=== PATIENT | male | born 1945 | race Caucasian/White ===

== ENCOUNTER 2017-01-12 06:34 | Day surgery (SDC) | payer OTHER ==
[2017-01-08 11:18] VITALS: BMI 23.9
[2017-01-12] MEDS ORDERED: oxyCODONE HCL 10 MG SUSTAINED ACTING TABLET PO STA (07:20)
[2017-01-12] MEDS ORDERED: CEFAZOLIN 1 GM in DEXTROSE 5%-WATER - 100 ML IVPB ONE (07:20)
[2017-01-12] MEDS ORDERED: GUM MASTIC/STORAX/MSAL/ALCOHOL 1 DRP DROPSBTL MC ONE (07:35)
[2017-01-12] MEDS ORDERED: methylPREDNISolone ACET (DEPO) 40 MG/1 ML VIAL ONE (07:35)
[2017-01-12] MEDS ORDERED: BUPIVACAINE HCL/PF 2.5 MG/ML - 30 ML VIAL IJ ONE (07:35)
[2017-01-12] MEDS ORDERED: THROMBIN (BOVINE) 5,000 UNIT VIAL TP ONE ×2 (07:35→10:05)
[2017-01-12] MEDS ORDERED: LIDOCAINE 1%/EPI 1:100000 (20 ML MULTI DOSE VIAL) ONE (07:35)
--- NOTE | 2017-01-12 08:02 | HP ---
History & Physical Update - History History: No Change - Physical Physical: No Change - Assessment Assessment: No Change - Plan Plan: No Change
[2017-01-12] MEDS ORDERED: MIDAZOLAM HCL 2 MG/2 ML SINGLE DOSE VIAL ONE (08:10)
[2017-01-12] MEDS ORDERED: ceFAZolin SODIUM 1 GM VIAL ONE (08:20)
[2017-01-12] MEDS ORDERED: LIDOCAINE 1%/EPI 1:100000 (50 ML MULTI DOSE VIAL) INF ONE (08:45)
[2017-01-12] MEDS ORDERED: ONDANSETRON 4 MG/2 ML VIAL ONE (08:59)
[2017-01-12] MEDS ORDERED: GELATIN SPONGE,ABSORBABLE 1 GM PACKET TP ONE (10:05)
[2017-01-12] MEDS ORDERED: methylPREDNISolone ACET (DEPO) 40 MG/1 ML VIAL IM ONE (10:21)
[2017-01-12] MEDS ORDERED: BUPIVACAINE HCL/PF 0.25% (2.5MG/ML) 10 ML VIAL IJ ONE (10:22)
[2017-01-12] MEDS ORDERED: ACETAMINOPHEN 1000 MG/100 ML VIAL (NON FORMULARY) IVPB ONE (10:48)
--- NOTE | 2017-01-12 10:48 | OP ---
Operative Note - Note: Operative Date: 01/12/17 Pre-Operative Diagnosis: Spinal stenosis with radiculopathy Operation: Laminectomy L2-L5 (bilateral) Post-Operative Diagnosis: Same as Pre-op Surgeon: Moises Mane Data Solutions Architect: Patrice Schultz Anesthesiologist/LITHOGRAPHIC GENERAL WORKER: Gabbie Boudreaux Anesthesia: Spinal Specimens Removed: None Estimated Blood Loss (mls): 20 Fluid Volume Replaced (mls): 1,000 Operative Report Dictated: Yes
--- NOTE | 2017-01-12 10:48 | SURG ---
Surgery Hair Spring Winder Note Hair Spring Winder: Patrice Schultz PA-C Date of Service: 01/12/17 Diagnosis: Spinal stenosis with radiculopathy Procedure: Laminectomy L2-L5 (bilateral) I was present for the entirety of the operative procedure. For further detail, please refer to operative report. Visit type - Case Type Case Type: Scheduled Admission - New patient This patient is new to me today: Yes Date on this admission: 01/12/17
[2017-01-12] MEDS ORDERED: traMADol HCL 50 MG TABLET PO ONE (10:49)
[2017-01-12] MEDS ORDERED: ONDANSETRON 4 MG/2 ML VIAL IVPUSH PRN (11:14)
[2017-01-12] MEDS ORDERED: oxyCODONE HCL 5 MG TABLET PO PRN (11:14)
[2017-01-12] MEDS ORDERED: LACTATED RINGERS SOLUTION 1,000 ML IV SCH (11:15)
[2017-01-12] MEDS ORDERED: TAMSULOSIN HCL 0.4 MG CAP.ER.24H (FP) ONE (13:16)
[2017-01-12 16:55] VITALS: BP 132/78; PULSE 81; TEMP 98.1
--- NOTE | 2017-01-13 11:20 | OP ---
DATE OF OPERATION: 01/12/2017 PREOPERATIVE DIAGNOSIS: Spinal stenosis, L2 to L5. POSTOPERATIVE DIAGNOSIS: Spinal stenosis, L2 to L5. PROCEDURE PERFORMED: Laminectomy, L2-3, L3-4, L4-5. SURGEON: oMises Mane MD VIRTUAL CLASSROOM MANAGER: SAUMYA Mercado ESTIMATED BLOOD LOSS: 50 mL INTRAVENOUS FLUIDS: Per Anesthesia. ANESTHESIA: Spinal. COMPLICATIONS: None. DISPOSITION: The patient brought to the PACU in stable condition. INDICATION FOR SURGERY: The patient is a 71-year-old gentleman who has been suffering from pain from his back down his legs. X-rays and MRI were completed which noted that he had spinal stenosis from L2 to L5. He had gone through an exhaustive course of treatment for this, which included medications, physical therapy, as well as injections. Unfortunately, his pain continued to persist despite all this. At this point, risks, benefits, and alternatives were discussed, and the patient consented to surgery. DESCRIPTION OF PROCEDURE: Patient was brought to the operating room by the Anesthesia staff. After the appropriate patient identification was performed, spinal anesthesia was given. He was placed prone onto the Kendrick frame. The patient was able to position himself such that all areas of bony prominences well padded. At this time, 2 needles were placed into his back to bob off the L2 and the L5 segments, and x-ray was taken to confirm this as correct. The needles were removed, and 10 mL of lidocaine with epinephrine was injected into his back at this time. His back was prepped and draped in a sterile manner. At this point, timeout was completed. An incision was made from the top of L2 down to the bottom of L5. Dissection was carried down to the fascia. Fascia was split open at this time, and the appropriate retractors were then placed in. A spinal needle was placed onto the L3-4 lamina. An x-ray was taken to confirm this as correct. The needle was removed, and the interspinous ligament at L2-3, L3-4, and L4-5 was removed. The [place]a bone cutter was used to remove the spinous process of L3 and L4. A bur was used to remove the lamina of L3 and L4. A complete decompression was performed such that by the end of the procedure, the L3, the L4, and the L5 nerve roots appeared to be well decompressed, ensuring all bleeding was well controlled at this time. Steroid was placed over the nerve root. Gelfoam was placed over that. The fascia was closed with a No. 1 Vicryl suture. The subcutaneous tissues were closed with 2-0 Vicryl suture. Skin was closed with 3-0 Monocryl suture. Dermabond was applied. Steri-Strips were applied. A sterile dressing applied. Patient was placed supine on the OR bed and brought to the PACU in stable condition. Dianelys BRUSH/[id number]
== END 2017-01-12 14:35 | disposition home or self-care (01) ==
LOC: FASU 06:34
PROVIDERS: ATTEND Orthopaedic Surgery Orthopaedic Surgery of the Spine
PROC: 01NB0ZZ Release Lumbar Nerve, Open Approach (ICD-10-PCS; principal; 2017-01-12 09:01)
DX: M48.06 Spinal stenosis, lumbar region (principal)
CPT/HCPCS: 72100-TC; 76000-TC; 94760